=== PATIENT | female | born 1990 | race Caucasian/White ===

== ENCOUNTER 2020-01-04 07:40 | Emergency (ER) | payer MEDICAID ==
[~2020-01-04] VITALS: Ht 154.9 cm; Wt 81.8 kg
[~2020-01-04 07:40] MED LIST: DURAFLU 325-201 EACH PO; MACROBID100 MG PO; VOLTAREN75 MG PO; XOFLUZA40 MG PO; ZOFRAN ODT4 MG/UDTAB PO
[2020-01-04 07:52] VITALS: Ht 154.9 cm; Wt 81.8 kg
[2020-01-04 08:23] LABS: CALC OSMOLALITY 271 mosm/kg (275-300); CALCIUM 8.6 mg/dL (8.5-10.1); CARBON DIOXIDE 27.3 mmol/L (21.0-32.0); CHLORIDE - SERUM 103 mmol/L (98-107); CREATININE - SERUM 0.8 mg/dL (0.6-1.3); GLUCOSE 99 mg/dL (74-106); POTASSIUM - SERUM 3.3 mmol/L (3.5-5.1); SODIUM 137 mmol/L (136-145); UREA NITROGEN 7 mg/dL (7-18); eGFR NON AFRICAN AMERICAN 89 mL/min (90-120)
[2020-01-04 08:28] LABS: ALBUMIN 3.5 g/dL (3.4-5.0); ALKALINE PHOSPHATASE 91 U/L (30-120); ALT (SGPT) 31 U/L (10-68); BILIRUBIN - TOTAL 0.67 mg/dL (0.2-1.3)
[2020-01-04 08:37] LABS: BASOPHILS 0.3 % (0-2); EOSINOPHILS 6.3 % (0-7); HEMATOCRIT 38.5 % (36.0-48.0); LYMPHOCYTES 35.2 % (15-50); MCH 30.5 pg (26.0-34.0); MCHC 33.8 g/dL (31.0-37.0); MCV 90.4 fL (80.0-100.0); MEAN PLATELET VOLUME 9.2 fL (7.4-10.4); MONOCYTES 8.3 % (2-11); NEUTROPHILS 49.9 % (40-80); PLATELET COUNT 252 10x3/uL (130-400); RBC 4.26 10x6/uL (4.00-5.40); RDW 13.4 % (11.5-14.5); WBC 7.5 10x3/uL (4.8-10.8)
[2020-01-04 08:51] LABS: HCG URINE NEGATIVE (NEGATIVE)
[2020-01-04 09:01] LABS: BILIRUBIN NEGATIVE (NEGATIVE); GLUCOSE NEGATIVE (NEGATIVE); KETONE NEGATIVE (NEGATIVE); NITRITE NEGATIVE (NEGATIVE); RED CELLS - URINE >50 /hpf (0-5); UROBILINOGEN NORMAL (NORMAL); WHITE CELLS - URINE 0-5 /hpf (NEGATIVE)
[2020-01-04 09:02] LABS: BACTERIA MODERATE /hpf (NEGATIVE); EPITHELIAL CELLS 0-5 /hpf (0-5)
[2020-01-04] MEDS ORDERED: FLAGYL500 MG PO (10:04)
[2020-01-04 10:12] VITALS: BP 132/74
== END 2020-01-04 10:13 | disposition home or self-care (01) ==
LOC: D.ER 07:40
PROVIDERS: Family Medicine
DX: N76.0 Acute vaginitis (principal)